=== PATIENT | female | born 1950 | race Caucasian/White ===

== ENCOUNTER 2017-07-18 18:54 | Inpatient (IN) ==
[2017-07-18] MEDS ORDERED: IPRATROPIUM/ALBUTEROL SULFATE 3 ML NEB NEB ONE ×2 (19:01→19:05)
[2017-07-18] MEDS ORDERED: Sodium Chloride 0.9% 1,000 ML PRIMARY IV ONE (19:01)
[2017-07-18] MEDS ORDERED: NORMAL SALINE 10 ML SYRINGE FLUSH IVP PRN ×2 (19:01→22:47)
[2017-07-18] MEDS ORDERED: LORazepam 2 MG/1 ML VIAL IVP ONE (19:03)
[2017-07-18 19:10] LABS: BASOPHILS # (AUTO) 0.06 10*3/UL; BASOPHILS % (AUTO) 0.6 % (0-1); EOSINOPHILS # (AUTO) 0.28 10*3/UL; EOSINOPHILS % (AUTO) 2.8 % (0-8); Hematocrit [HCT] 47.5 % (37.0-47.0); Hemoglobin [HGB] 15.4 g/dL (12.0-16.0); MEAN CORPUSCULAR HEMOGLOBIN 30.9 PG (27-31); MEAN CORPUSCULAR HGB CONC 32.4 g/dL (33-37); MEAN CORPUSCULAR VOLUME 95.2 FL (81-99); MONOCYTES # (AUTO) 0.63 10*3/UL (0.3-0.8); MONOCYTES % (AUTO) 6.3 % (5-15); NEUTROPHILS # (AUTO) 5.79 10*3/UL; NEUTROPHILS % (AUTO) 57.4 % (50-80); RED BLOOD COUNT 4.99 10^6/uL (4.20-5.40)
[2017-07-18 19:11] LABS: PLATELET MORPHOLOGY COMMENT NORMAL MORPHOLOGY (NORM); RBC MORPHOLOGY COMMENT NORMAL MORPHOLOGY (NORM); WBC MORPHOLOGY COMMENT NORMAL MORPHOLOGY (NORM)
[2017-07-18 19:23] LABS: BLOOD UREA NITROGEN 12 mg/dL (7-22); SERUM ALBUMIN 4.5 g/dL (3.5-4.8)
--- NOTE | 2017-07-18 19:31 | DI ---
EXAM: XR Chest, 1 View CLINICAL HISTORY: ITS.REASON Dyspnea Physician Notes: Tech Comments: TECHNIQUE: Frontal view of the chest. COMPARISON: No relevant prior studies available. FINDINGS: Lungs: No confluent consolidation or edema. Platelike atelectasis or scarring in the right lower lung field. Pleural space: Mild blunting of the left costophrenic angle. No pneumothorax. Heart: Unremarkable. No cardiomegaly. Mediastinum: Unremarkable. Bones/joints: No acute fracture. IMPRESSION: 1. Mild blunting of the left costophrenic angle. 2. No confluent consolidation or edema.
[2017-07-18] MEDS ORDERED: metroNIDAZOLE 500mg (Premix) 500 MG/100 ML BAG IV ONE (21:56)
[2017-07-18] MEDS ORDERED: cefTRIAXone Inj 2 GM in Sodium Chloride 0.9% 100 ML IV ONE (21:56)
--- NOTE | 2017-07-18 22:14 | PDOC ---
Dyspnea HPI - General Chief Complaint: Respiratory Complaint Stated Complaint: "CAN'T Breath" Date Seen by Provider: 07/18/17 Time Seen by Provider: 19:10 Source: POSITIVE: Patient, Spouse Exam Limitations: POSITIVE: No limitations Treatment Prior to Arrival: REPORTS: None Nurse's Notes Reviewed & Considered: Yes - History of Present Illness Initial Comments: The patient is a 67-year-old female with a diagnosis of ALS who presents to the emergency department with difficulty breathing. She was diagnosed with ALS 3 years ago. She has had progressive weakness that started in her arms and has progressed to her legs over the past several months. For the past week or so she has had some increased difficulty swallowing. This evening she developed some phlegm in the back of her throat which she could not clear and she subsequently developed a difficult time breathing. When she arrived in the emergency department she was feeling very short of breath. She denies any recent fevers or chills, chest pain or any other associated symptoms. She does not normally wear oxygen at home. - Patient Home Medications Home Medications: Home Medications alfalfa 250 mg tablet 500 mg PO QHS ea 06/13/17 cholecalciferol (vitamin D3) 1,000 unit capsule 1,000 unit PO QDAY cap cyanocobalamin (vit B-12) 2,500 mcg sublingual tablet 2,500 mcg PO QDAY gabapentin 300 mg capsule 300 mg PO QDAY cap 06/13/17 - Patient Allergies Allergies/Adverse Reactions: Allergies 3 Allergy/AdvReac Type Severity Reaction Status Date / Time No Known Drug Allergies Allergy NOT Verified 07/18/17 22:00 APPLICABLE Past Medical History Past Medical History Reviewed: Other (please comment) (Past medical history is significant for ALS and otherwise no medical issues.) ROS - Limitations ROS Limitations: No Limitations Constitution: DENIES: Chills, Fever Cardiovascular: DENIES: Chest Pain Respiratory: REPORTS: Shortness Of Breath. DENIES: Cough Non Productive, Cough Productive Neurological: REPORTS: Weakness (Significant weakness in her extremities). DENIES: Headache Musculoskeletal: REPORTS: Denies MS Symptoms, Other (Some mild swelling in her legs) Eyes: REPORTS: Denies Symptoms ENT: REPORTS: Trouble Swallowing. DENIES: Congestion Skin: DENIES: Rash Dyspnea Physical Exam - General Appearance General Appearance: REPORTS: Anxious - HEENT HEENT: POSITIVE: Head Inspection Nml, Eyes Inspection Nml, Ears Inspection Nml, Pharynx Inspect. Nml - Respiratory Respiratory: REPORTS: Other (On arrival the patient was tachypnea, she had marked upper respiratory rhonchi especially in the right upper lung with some gurgling noted with respirations, she was very anxious on arrival, O2 sats were in the low to mid 90s on room air) - Cardiovascular Cardiovascular: REPORTS: Heart Sounds Normal, Other (She was tachycardic with a heart rate in the 130s initially) - Abdomen Abdomen: Soft: (All Quadrants), Denies Tenderness: (All Quadrants), No Distention: (All Quadrants) - Skin Skin: REPORTS: Intact, No Rash - Extremities Extremity: Normal ROM: (All Extremities), Normal Inspection: (All Extremities) - Neurological / Psychological Neurological: POSITIVE: Oriented X3, Motor Normal, Sensation Normal Dyspnea Progress - Results Reviewed by me Xrays/CTs/US Reviewed by me: Yes Discussed with Radiologist: Yes Radiology Findings: Portable chest x-ray shows linear atelectasis in the right lower lung with some blunting of the costophrenic angle on the left with no obvious infiltrate per radiologist. Lab Results Reviewed by Me: Yes CBC and BMP: 07/18/17 19:00 07/18/17 19:00 - Patient's Progress MDM / ED Course: The patient appeared to be having a difficult time clearing upper airway secretions on arrival. She was tachypnea take in very anxious. Oxygen saturations were in the low to mid 90s on room air. The patient was suctioned both deep suction as well as Yankauer suction and given a duo neb. She still had subjective difficulty breathing. She was subsequently placed on BiPAP which improved her breathing significantly. Initial venous blood gas showed a normal pH and normal PCO2. Chest x-ray shows some linear atelectasis in the right lung base and some blunting of the left costophrenic angle otherwise no acute abnormalities per radiologist. Her blood work is all essentially unremarkable with a normal white count and normal d-dimer. Blood cultures were drawn with initial IV start. After the patient had been on BiPAP for almost 2 hours she was weaned back to a nasal cannula which she tolerated very well. She was breathing subjectively much better than on arrival. We did try to wean her completely off of oxygen however her sats dropped into the upper 80s and she was placed back on 2 L per nasal cannula. I did discuss these findings with the patient and her family as well as with Dr. Prieto. Current plan is for admission. She will be started on antibiotics for treatment of possible early pneumonia/aspiration. She was given 2 g of Rocephin and 500 mg of Flagyl. These recommendations were discussed with the patient and her family and they' re in agreement with current plan. - Consult Counseled: POSITIVE: Patient, Family, RE: Lab Results, RE: Radiology Results, RE : DX Patient Care Time - Estimated PCT Patient Care Time (In Minutes): 45 Vital Signs - Recent Vital Signs Vital Signs: Vital Signs (Last 8 hours) Pulse Resp Pulse Ox 07/18/17 19:11 126 H 28 H 96 07/18/17 19:10 136 H 28 H 97 - VS Reviewed Vital Signs Reviewed: Yes Discharge Clinical Impression: ALS (amyotrophic lateral sclerosis), Aspiration into airway Discharge Disposition: Admit to Inpatient Condition: Fair Follow Up With: JEFF JETT [Primary Care Provider] - Date Decision to Admit to Inpatient: 07/18/17 Time Decision to Admit to Inpatient: 22:00
[2017-07-18 22:15] LABS: VENOUS PH 7.39 (7.32-7.42)
[2017-07-18] MEDS ORDERED: LIDOCAINE W/ SODIUM BICARB 0.5 ML SYR SUBD PRN (22:47)
[2017-07-18] MEDS ORDERED: ALBUTEROL SULFATE 2.5 MG/3 ML NEB PRN (22:47)
[2017-07-18] MEDS ORDERED: ONDANSETRON 4 MG/2 ML VIAL IVP PRN (22:47)
--- NOTE | 2017-07-18 23:18 | PDOC ---
HPI - History of Present Illness Date of Service: 07/18/17 Time of Service: 23:13 Chief Complaint: Short of breath History of Present Illness: This is a very pleasant 67-year-old female with a rare form of ALS, who presents here with sudden onset shortness of breath, coughing, and apparent mucous plugging. She states that initially thing started out with a sensation in the back of her throat like she was not able to clear something or there could be some phlegm. She tried to clear it with cough and could not. She is coming in by her , and her and her state that she has had more issues lately with some food items feeling like they're getting stuck at the back of the throat such as bread and a gradual decline in overall function over the last several months. The patient generally can clear phlegm, but she couldn 't this time, she tried some ice chips and that did not work. She finally had her bring her in for evaluation and in the emergency room, she eventually had to have BiPAP, suctioning, and an albuterol treatment is what the patient states helped her the most. She now feels much better. She is not had any fevers, chills, nausea, vomiting, and doesn't really complain of any heartburn issues. She's not had anything like this happen before. She was diagnosed with ALS about 3 years ago. She is seen the [facility], seasonal predominance only, and sees locally, Dr. Tiwari. Her chest x-ray has some discoid type atelectasis and possible blunting in the costophrenic angle on the left side which could be infiltrate or atelectasis. Past Medical History Medical History: 1. ALS Surgical History: 1. Tubal ligation due to a tubal Pertinent Family History: No family history of ALS. Past Social History: for 50 years. Has 2 healthy children, several grandchildren that are healthy and live in the area of [place], [place]. Lives at home with her . Does not smoke or drink. Tobacco Use: Never Smoker In the Past 12 Months, Have Used or Abuse Any of the Following Substance: None Alcohol Use: None Medication / Allergies Home Medications: Home Medications 3 Medication Instructions Recorded Confirmed Type alfalfa 250 mg tablet 500 mg PO QHS ea 06/13/17 06/13/17 History cholecalciferol (vitamin D3) 1,000 1,000 unit PO QDAY cap 06/13/17 06/13/17 History unit capsule cyanocobalamin (vit B-12) 2,500 2,500 mcg PO QDAY 06/13/17 06/13/17 History mcg sublingual tablet gabapentin 300 mg capsule 300 mg PO QDAY cap 06/13/17 06/13/17 History Allergies/Adverse Reactions: Allergies 3 Allergy/AdvReac Type Severity Reaction Status Date / Time No Known Drug Allergies Allergy NOT Verified 07/18/17 22:00 APPLICABLE Review of Systems - Review of Systems All Systems: Reviewed & No Additional Complaints Except as Stated (I did a 12 point review of systems and it was negative except for that in history present illness and that noted below.) - Constitutional Constitutional: REPORTS: Fever / Chills (Gets frequent hot and cold chills.), Other (Weight has remained fairly consistent.) - Mouth/Throat Mouth/Throat Exam: REPORTS: Sore Throat (Has a sore throat after suctioning today.) - Respiratory Respiratory: REPORTS: Negative System Review (For chronic issues), See HPI - Cardiovascular Cardiovascular: REPORTS: Negative System Review - Gastrointestinal Gastrointestinal / Abdominal: REPORTS: Negative System Review - Genitourinary Genitourinary: REPORTS: Negative System Review - Musculoskeletal Musculoskeletal: REPORTS: Other (Occasionally has some muscle aches, particularly when the weather gets bad. Has some ankle edema) - Neurological Neurologic: REPORTS: Weakness, Incoordination, Other (Nonambulatory. Does transfer chair with her for showers and bathroom. They just bought a Derick lift but have not used it.), See HPI - Psychiatric Psychiatric: REPORTS: Negative System Review Exam - Vitals Vital Signs: Vital Signs - Last Taken Temperature 97.2 F 07/18/17 19:00 Pulse Rate 126 H 07/18/17 19:11 Respiratory Rate 18 07/18/17 22:00 Blood Pressure 111/82 07/18/17 22:00 Pulse Ox 98 07/18/17 22:00 On 2 L per nasal cannula - General General Appearance: No Acute Distress, Cooperative - Head Head Exam: Normal Inspection, Normocephalic, Atraumatic - Eye Eye Exam: POSITIVE: No Scleral Icterus - ENT ENT Exam: POSITIVE: Mucous Membranes Dry - Neck Neck Exam: Normal Inspection, No Tenderness, No Lymphadenopathy, No Thyromegaly , JVP is not Raised - Respiratory Respiratory Exam: POSITIVE: Clear to Auscultation - Bilaterally, Breathing Non Labored - Cardiovascular Cardiovascular Exam: POSITIVE: No Murmur, No Clicks, No Gallops, No Rubs, Tachycardia, No JVD - GI/Abdominal GI/Abdominal Exam: POSITIVE: Normal Bowel Sounds, Non Tender, Non Distended, Soft - Rectal Rectal Exam: POSITIVE: Deferred - External Exam: POSITIVE: Deferred Exam: POSITIVE: Deferred - Extremities Extremities Exam: POSITIVE: No Clubbing Present, No Cyanosis Present - Neurological Neurological Exam: POSITIVE: Alert, Oriented x 3, No Facial Droop, Speech Intact / Clear - Psychiatric Psychiatric Exam: POSITIVE: Normal Affect, Normal Mood Results - Labs CBC and BMP: 07/18/17 19:00 07/18/17 19:00 Additional Lab Results: Laboratory Results 07/18/17 07/18/17 07/18/17 Range/Units 19:00 19:00 19:00 WBC 10.08 (4.8-10.8) 10^3/uL RBC 4.99 (4.20-5.40) 10^6/uL Hgb 15.4 (12.0-16.0) g/dL Hct 47.5 H (37.0-47.0) % MCV 95.2 (81-99) FL MCH 30.9 (27-31) PG MCHC 32.4 L (33-37) g/dL RDW Std Deviation 49.4 (39-50) fL RDW Coeff of Rhonda 14.5 (11.5-14.5) % Plt Count 284 (140-350) 10*3/uL MPV 11.0 (7.4-12.2) FL Immature Gran % (Auto) 0.2 (0-5) % Neut % (Auto) 57.4 (50-80) % Lymph % (Auto) 32.7 (10-50) % [place] % (Auto) 6.3 (5-15) % Eos % (Auto) 2.8 (0-8) % Baso % (Auto) 0.6 (0-1) % Immature Gran # (Auto) 0.02 10*3/UL Neut # (Auto) 5.79 10*3/UL Lymph # (Auto) 3.30 10*3/uL [place] # (Auto) 0.63 (0.3-0.8) 10*3/UL Eos # (Auto) 0.28 10*3/UL Baso # (Auto) 0.06 10*3/UL WBC Morphology Comment Normal morphology (NORM) Plt Morphology Comment Normal morphology (NORM) RBC Morph Comment Normal morphology (NORM) D-Dimer 0.34 (0.00-0.59) mg/L VBG pH (7.32-7.42) VBG pCO2 (45-55) mmHg VBG HCO3 (22-26) mmol/L VBG Base Excess (-2-2) MMOL/L Sodium 147 H (135-145) meq/L Potassium 3.5 L (3.8-5.2) meq/L Chloride 104 (98-112) meq/L Carbon Dioxide 26 (23-33) meq/L Anion Gap 17 (5-20) BUN 12 (7-22) mg/dL Creatinine 0.4 L (0.50-1.20) mg/dL Estimated GFR > 60 (>60 ml/min/1.73m(2)) BUN/Creatinine Ratio 30.00 H (6-20) Glucose 142 H (78-110) mg/dL Calculated Osmolality 305.0 H (267-292) mOsm/kg Lactic Acid (0.70-2.10) MMOL/L Calcium 9.3 (8.7-10.7) mg/dL Magnesium 2.1 (1.6-2.4) mg/dL Total Bilirubin 0.3 (0.3-1.2) mg/dL AST 43 H (8-39) IU/L ALT 32 (9-52) IU/L Alkaline Phosphatase 85 (38-126) IU/L C-Reactive Protein < 0.5 (0.0-0.9) mg/dL Total Protein 7.7 (6.1-8.0) g/dL Albumin 4.5 (3.5-4.8) g/dL Globulin 3.1 (2.50-4.10) g/dL Albumin/Globulin Ratio 1.40 (1.3-2.0) mg/g 07/18/17 07/18/17 Range/Units 19:00 19:15 WBC (4.8-10.8) 10^3/uL RBC (4.20-5.40) 10^6/uL Hgb (12.0-16.0) g/dL Hct (37.0-47.0) % MCV (81-99) FL MCH (27-31) PG MCHC (33-37) g/dL RDW Std Deviation (39-50) fL RDW Coeff of Rhonda (11.5-14.5) % Plt Count (140-350) 10*3/uL MPV (7.4-12.2) FL Immature Gran % (Auto) (0-5) % Neut % (Auto) (50-80) % Lymph % (Auto) (10-50) % [place] % (Auto) (5-15) % Eos % (Auto) (0-8) % Baso % (Auto) (0-1) % Immature Gran # (Auto) 10*3/UL Neut # (Auto) 10*3/UL Lymph # (Auto) 10*3/uL [place] # (Auto) (0.3-0.8) 10*3/UL Eos # (Auto) 10*3/UL Baso # (Auto) 10*3/UL WBC Morphology Comment (NORM) Plt Morphology Comment (NORM) RBC Morph Comment (NORM) D-Dimer (0.00-0.59) mg/L VBG pH 7.39 (7.32-7.42) VBG pCO2 42 L (45-55) mmHg VBG HCO3 25 (22-26) mmol/L VBG Base Excess 0 (-2-2) MMOL/L Sodium (135-145) meq/L Potassium (3.8-5.2) meq/L Chloride (98-112) meq/L Carbon Dioxide (23-33) meq/L Anion Gap (5-20) BUN (7-22) mg/dL Creatinine (0.50-1.20) mg/dL Estimated GFR (>60 ml/min/1.73m(2)) BUN/Creatinine Ratio (6-20) Glucose (78-110) mg/dL Calculated Osmolality (267-292) mOsm/kg Lactic Acid 2.0 (0.70-2.10) MMOL/L Calcium (8.7-10.7) mg/dL Magnesium (1.6-2.4) mg/dL Total Bilirubin (0.3-1.2) mg/dL AST (8-39) IU/L ALT (9-52) IU/L Alkaline Phosphatase (38-126) IU/L C-Reactive Protein (0.0-0.9) mg/dL Total Protein (6.1-8.0) g/dL Albumin (3.5-4.8) g/dL Globulin (2.50-4.10) g/dL Albumin/Globulin Ratio (1.3-2.0) mg/g - Imaging Status: Image Reviewed by Me (Chest x-ray, on my view, has what looks like atelectasis and a blunting of the costophrenic angle on the left which could be possible infiltrate. Could've aspirated here tonight.) Assessment and Plan - Patient Problems (1) Aspiration pneumonitis Current Visit: Yes Status: Acute Code(s): J69.0 - Pneumonitis due to inhalation of food and vomit (2) Dysphagia Current Visit: Yes Status: Acute Code(s): R13.10 - Dysphagia, unspecified Qualifiers: Dysphagia type: oropharyngeal phase Qualified Code(s): R13.12 - Dysphagia, oropharyngeal phase (3) Aspiration into airway Current Visit: Yes Status: Acute Code(s): T17.908A - Unspecified foreign body in respiratory tract, part unspecified causing other injury, initial encounter Qualifiers: Encounter type: initial encounter Qualified Code(s): T17.908A - Unspecified foreign body in respiratory tract, part unspecified causing other injury, initial encounter (4) ALS (amyotrophic lateral sclerosis) Current Visit: Yes Status: Chronic Code(s): G12.21 - Amyotrophic lateral sclerosis - Assessment / Plan Additional Assessment/Plan Details: Admit the patient. Start Rocephin and Flagyl and treat with IV antibiotics for 48-72 hours and then possibly finish course of therapy with by mouth medications. Given the dysphagia and ALS, I think it would be a good idea to consider doing an EGD to look for soft due to stricture and also do a modified barium swallow evaluation with speech on Friday and radiology to determine whether or not there is significant aspiration that we need to make modifications fot. Check labs in a.m. I did discuss in length with the patient and her CODE STATUS and she is DO NOT RESUSCITATE. I also discussed the idea of a potential PEG tube. The patient and her give me a history that suggests that her functionality overall is declining in terms of her ability to move, her ability to assist in transfers, her ability to swallow overall has been compromised more lately, and she may benefit from a PEG tube not only for nutritional content but also for medication delivery. Her reports to me that she is having trouble swallowing some of her pills and that is been fairly new lately. It may be beneficial to consider a swing bed for continued therapy needs to address learning how to use a Derick lift. I'll have case management/social work job titles work on looking at a home health aide that may be able to come in once a week for bath assistance to help ease some of the burden on the patient and her who is caring for her. Plan above discussed with the patient in detail. The patient's was at bedside for this discussion as well. They both agree with the plan.
[2017-07-18] MEDS: D5-1/2NS + 20mEq KCL 1,000 ML PRIMARY IV SCH (23:53)
[2017-07-19] MEDS: cefTRIAXone Inj 2 GM in Sodium Chloride 0.9% 100 ML IV SCH ×2 (00:52→22:53)
[2017-07-19 05:09] LABS: BASOPHILS # (AUTO) 0.03 10*3/UL; BASOPHILS % (AUTO) 0.3 % (0-1); EOSINOPHILS # (AUTO) 0.07 10*3/UL; EOSINOPHILS % (AUTO) 0.7 % (0-8); Hematocrit [HCT] 43.2 % (37.0-47.0); Hemoglobin [HGB] 13.4 g/dL (12.0-16.0); LYMPHOCYTES # (AUTO) 1.79 10*3/uL; MEAN CORPUSCULAR HEMOGLOBIN 29.8 PG (27-31); MEAN PLATELET VOLUME 11.6 FL (7.4-12.2); MONOCYTES # (AUTO) 0.62 10*3/UL (0.3-0.8); MONOCYTES % (AUTO) 6.1 % (5-15); NEUTROPHILS # (AUTO) 7.72 10*3/UL; NEUTROPHILS % (AUTO) 75.4 % (50-80)
[2017-07-19 05:19] LABS: BLOOD UREA NITROGEN 11 mg/dL (7-22); BUN/CREATININE RATIO 36.66 (6-20)
[2017-07-19 05:22] LABS: PLATELET MORPHOLOGY COMMENT NORMAL MORPHOLOGY (NORM); RBC MORPHOLOGY COMMENT NORMAL MORPHOLOGY (NORM); WBC MORPHOLOGY COMMENT NORMAL MORPHOLOGY (NORM)
[2017-07-19] MEDS ORDERED: metroNIDAZOLE 500mg (Premix) 500 MG/100 ML BAG IV SCH (06:00)
[2017-07-19] MEDS: Pantoprazole Inj 40 MG in Normal Saline Flush 10 ML IVP SCH (08:27)
[2017-07-19] MEDS: ENOXAPARIN SODIUM 40 MG/0.4 ML SYRINGE SUBCUT SCH (08:27)
[2017-07-19] MEDS: GABAPENTIN 300 MG CAPSULE PO SCH (08:28)
[2017-07-19] MEDS: CHOLECALCIFEROL 1000 IU TABLET PO SCH ×2 (08:28→08:56)
[2017-07-19] MEDS: ASCORBIC ACID 500 MG TABLET PO SCH ×2 (08:28→08:56)
[2017-07-19] MEDS: metroNIDAZOLE 500mg (Premix) 500 MG/100 ML BAG IV SCH ×3 (08:30→23:53)
[2017-07-19] MEDS: D5-1/2NS + 20mEq KCL 1,000 ML PRIMARY IV SCH (08:31)
[2017-07-19] MEDS ORDERED: CYANOCOBALAMIN 2500 MCG PO SCH (09:00)
[2017-07-19] MEDS ORDERED: GUAIFENESIN/DM 5 ML UD CUP PO PRN (16:10)
[2017-07-19] MEDS ORDERED: Potassium Chloride 20mEq Packet PO ONE (16:15)
--- NOTE | 2017-07-19 16:16 | PDOC(PROG) ---
Date and Time of Service: 07/19/2017, 1610 Interval History: no chest pain, SOB is better, but does report congestion. still gets sore throat; not as bad as yesterday. Objective : Data - Labs CBC and BMP: 07/19/17 04:20 07/19/17 04:20 Objective : Exam - General General Appearance: No Acute Distress, Cooperative Additional General Exam Details: Vital Signs - Last Taken Temperature 98.2 F 07/19/17 13:00 Pulse Rate 94 07/19/17 13:00 Respiratory Rate 20 07/19/17 13:00 Blood Pressure 165/90 07/19/17 13:00 Pulse Ox 97 07/19/17 14:45 - Eye Eye Exam: No Scleral Icterus - ENT ENT Exam: Mucous Membranes Moist - Respiratory Respiratory Exam: Clear to Auscultation - Bilaterally, Breathing Non Labored - Cardiovascular Cardiovascular Exam: RRR, No Murmur, No Clicks, No Gallops, No Rubs, No JVD - GI/Abdominal GI/Abdominal Exam: Normal Bowel Sounds, Non Tender, Non Distended, Soft - Extremities Extremities Exam: No Clubbing Present, No Edema Present, No Cyanosis Present - Neurological Neurological Exam: Alert, Oriented x 3, No Facial Droop, Speech Intact / Clear Assessment and Plan - Patient Problems (1) Aspiration pneumonitis Current Visit: Yes Status: Acute Code(s): J69.0 - Pneumonitis due to inhalation of food and vomit (2) Dysphagia Current Visit: Yes Status: Acute Code(s): R13.10 - Dysphagia, unspecified Qualifiers: Dysphagia type: oropharyngeal phase Qualified Code(s): R13.12 - Dysphagia, oropharyngeal phase (3) Aspiration into airway Current Visit: Yes Status: Acute Code(s): T17.908A - Unspecified foreign body in respiratory tract, part unspecified causing other injury, initial encounter Qualifiers: Encounter type: initial encounter Qualified Code(s): T17.908A - Unspecified foreign body in respiratory tract, part unspecified causing other injury, initial encounter (4) ALS (amyotrophic lateral sclerosis) Current Visit: Yes Status: Chronic Code(s): G12.21 - Amyotrophic lateral sclerosis - Assessment / Plan Additional Assessment/Plan Details: replace potassium consulted surgery for possible EGD if stricture is thought after swallow eval, also getting pill dysphagia, likely may need consideration for PEG tube IV antibiotics for today, check CXR tomorrow check labs in AM plan discussed with the patient and at bedside. PT and OT--train and patient on payton lift check with case management on details of possible home health aide to help with shower--get costs for patient to help her make decision on that.
[2017-07-19] MEDS ORDERED: LABETALOL 20 MG/4 ML (5 MG/1 ML) SYRINGE IVP PRN (19:38)
[2017-07-19] MEDS ORDERED: ALFALFA 250 MG PO SCH (21:00)
[2017-07-20 06:43] LABS: BASOPHILS # (AUTO) 0.05 10*3/UL; BASOPHILS % (AUTO) 0.6 % (0-1); EOSINOPHILS # (AUTO) 0.15 10*3/UL; EOSINOPHILS % (AUTO) 1.9 % (0-8); Hematocrit [HCT] 42.2 % (37.0-47.0); Hemoglobin [HGB] 13.1 g/dL (12.0-16.0); LYMPHOCYTES # (AUTO) 1.14 10*3/uL; MEAN CORPUSCULAR VOLUME 96.6 FL (81-99); MEAN PLATELET VOLUME 11.2 FL (7.4-12.2); MONOCYTES # (AUTO) 0.58 10*3/UL (0.3-0.8); MONOCYTES % (AUTO) 7.2 % (5-15); NEUTROPHILS # (AUTO) 6.16 10*3/UL; RED BLOOD COUNT 4.37 10^6/uL (4.20-5.40)
[2017-07-20 06:50] LABS: PLATELET MORPHOLOGY COMMENT NORMAL MORPHOLOGY (NORM); RBC MORPHOLOGY COMMENT NORMAL MORPHOLOGY (NORM); WBC MORPHOLOGY COMMENT NORMAL MORPHOLOGY (NORM)
[2017-07-20 07:01] LABS: BLOOD UREA NITROGEN 6 mg/dL (7-22)
--- NOTE | 2017-07-20 07:51 | DI ---
PORTABLE AP SEMIUPRIGHT CXR: HISTORY: 67-year-old female with aspiration pneumonitis. COMPARISON: 07/18/2017. FINDINGS: There is new ill-defined patchy groundglass opacity within the infrahilar right lower lung; previously identified thin linear right perihilar density is not identified currently. There is new or increased patchy groundglass opacity within the left lateral upper/midlung as well. There is persistent minimal blunting of the left lateral costophrenic sulcus. Heart size is normal and stable. No obvious pneumothorax. IMPRESSION: New or increased patchy ground glass opacities within the right lower and left upper lungs, suggesting possible early atypical/multifocal pneumonia, including aspiration pneumonia; minimal blunting of the left lateral costophrenic sulcus, suggesting possible small effusion, as before.
[2017-07-20] MEDS: D5-1/2NS + 20mEq KCL 1,000 ML PRIMARY IV SCH (08:09)
[2017-07-20] MEDS ORDERED: Sodium Chloride 0.9% 50 ML ONE (08:32)
[2017-07-20] MEDS: GABAPENTIN 300 MG CAPSULE PO SCH (08:49)
[2017-07-20] MEDS: Pantoprazole Inj 40 MG in Normal Saline Flush 10 ML IVP SCH (08:49)
[2017-07-20] MEDS: ENOXAPARIN SODIUM 40 MG/0.4 ML SYRINGE SUBCUT SCH (08:49)
[2017-07-20] MEDS: metroNIDAZOLE 500mg (Premix) 500 MG/100 ML BAG IV SCH ×3 (08:58→23:17)
[2017-07-20] MEDS: ASCORBIC ACID 500 MG TABLET PO SCH (10:16)
[2017-07-20] MEDS: CHOLECALCIFEROL 1000 IU TABLET PO SCH (10:17)
[2017-07-20] MEDS ORDERED: CYANOCOBALAMIN 1000 MCG/1 ML VIAL IM ONE (13:34)
--- NOTE | 2017-07-20 13:37 | PDOC(PROG) ---
Interval History: Doing better today had something to eat or complaints Objective : Data - Labs CBC and BMP: 07/20/17 06:05 07/20/17 06:05 Objective : Exam - General General Appearance: Cooperative - Respiratory Respiratory Exam: Clear to Auscultation - Bilaterally, Breathing Non Labored, Normal To Percussion, Normal to Percussion and Palpation - Cardiovascular Cardiovascular Exam: RRR, No Murmur, No Clicks, No Gallops, No Rubs, PMI Non- Displaced - GI/Abdominal GI/Abdominal Exam: Normal Bowel Sounds, Non Tender, Non Distended, Soft, No Masses, No Hepatomegaly, No Splenomegaly, No Organomegaly Assessment and Plan - Patient Problems (1) ALS (amyotrophic lateral sclerosis) Current Visit: Yes Status: Chronic Code(s): G12.21 - Amyotrophic lateral sclerosis (2) Aspiration into airway Current Visit: Yes Status: Acute Code(s): T17.908A - Unspecified foreign body in respiratory tract, part unspecified causing other injury, initial encounter Qualifiers: Encounter type: initial encounter Qualified Code(s): T17.908A - Unspecified foreign body in respiratory tract, part unspecified causing other injury, initial encounter (3) Aspiration pneumonitis Current Visit: Yes Status: Acute Code(s): J69.0 - Pneumonitis due to inhalation of food and vomit (4) Dysphagia Current Visit: Yes Status: Acute Code(s): R13.10 - Dysphagia, unspecified Qualifiers: Dysphagia type: oropharyngeal phase Qualified Code(s): R13.12 - Dysphagia, oropharyngeal phase - Assessment / Plan Additional Assessment/Plan Details: #1 hypokalemiacontinue replacement #2 aspiration pneumonia surgery was consult for possible EGD and swallow eval tomorrow she has been having difficulty even having and taking pills and that after the results. There will be consideration for possible PEG tube continue antibiotics for aspiration pneumonia plan was discussed with and patient and kids in the room most likely this could be a neurologic issue from her ALS that she's had for the last 4 years We'll check B12 and folate levels give 1000 g of B12
[2017-07-20] MEDS: cefTRIAXone Inj 2 GM in Sodium Chloride 0.9% 100 ML IV SCH (22:20)
[2017-07-21 02:05] VITALS: RESP 18
[2017-07-21] MEDS: metroNIDAZOLE 500mg (Premix) 500 MG/100 ML BAG IV SCH (08:05)
[2017-07-21] MEDS ORDERED: LORazepam 2 MG/1 ML VIAL IVP ONE (08:42)
[2017-07-21] MEDS ORDERED: cefTRIAXone Inj 2 GM in Sodium Chloride 0.9% 100 ML IV SCH (09:30)
[2017-07-21] MEDS: GABAPENTIN 300 MG CAPSULE PO SCH (09:39)
[2017-07-21] MEDS: ENOXAPARIN SODIUM 40 MG/0.4 ML SYRINGE SUBCUT SCH (09:40)
[2017-07-21] MEDS: Pantoprazole Inj 40 MG in Normal Saline Flush 10 ML IVP SCH (09:40)
[2017-07-21] MEDS: CHOLECALCIFEROL 1000 IU TABLET PO SCH (09:41)
[2017-07-21] MEDS: ASCORBIC ACID 500 MG TABLET PO SCH (09:41)
--- NOTE | 2017-07-21 10:38 | DCSUMMARY ---
Hospitalization Summary Hospital Course: Final Discharge Diagnosis: Current Visit Problems Problem Status Onset Code Aspiration into airway Acute T17.908A Aspiration pneumonitis Acute J69.0 Dysphagia Acute R13.10 ALS (amyotrophic lateral sclerosis) Chronic G12.21 Diagnostic Data, Laboratory Data, and Procedures of Signifigance: Laboratory Results 07/21/17 Range/Units 04:25 Vitamin B12 > 1000 H (239-931) pg/mL Serum Folate 8.36 (2.76-20.0) NG/ML History and Physical pertinent to Admission: Past Medical History Medical History: 1. ALS Surgical History: 1. Tubal ligation due to a tubal Pertinent Family History: No family history of ALS. Past Social History: for 50 years. Has 2 healthy children, several grandchildren that are healthy and live in the area of [place], [place]. Lives at home with her . Does not smoke or drink. Tobacco Use: Never Smoker In the Past 12 Months, Have Used or Abuse Any of the Following Substance: None Alcohol Use: None Course of Hospitalization: Is a very nice 67-year-old female with the past medical history of a rare form of ALS followed by Dr. Tiwari for the last 3 years so was seen at [facility] presented with the shortness of breath and coughing also are stated that the lately she had some food being stuck and some difficulty swallowing had to have some BiPAP and suctioning and albuterol treatments patient improved and is back to her baseline and diagnosed with the aspiration pneumonia. Was started on antibiotics with Rocephin and Flagyl. Swallow study with the modified barium was ordered the occupational therapist did do only the first part patient refused the second part of her barium and occupational therapist agreed with the patient that for now she might not need it she will have a mechanical soft and modified the next 2 liquid diet she will also crush her pills patient is very adamant on being discharged home occupational therapist as talk with the patient and will be going to her house this afternoon for further evaluation patient has accepted this but she will be staying home no matter what their recommendations are this was discussed with the which is the primary caregiver patient and nursing son and occupational and physical therapy in the room. Patient states that she will feel much more comfortable in her own environment at home and appreciates the care that she was given On the date of discharge, the patient was examined: Gen.: No acute distress, alert, nontoxic Heart: Regular rate and rhythm, no murmurs, clicks, gallops, or rubs Lungs: Clear to auscultation bilaterally, breathing is nonlabored Abdomen/GI: Normal tones on auscultation, soft, nontender, nondistended Musculoskeletal/extremities: No clubbing, cyanosis, or edema Vitals reviewed and are listed below Vital Signs (24 hrs) Temp Pulse Resp BP Pulse Ox 07/21/17 08:49 98.0 F 111 H 18 147/91 93 07/21/17 07:00 99 18 07/21/17 05:24 90 07/21/17 04:44 98.0 F 99 18 146/85 91 07/21/17 01:00 97.8 F 96 18 154/89 90 07/20/17 20:47 98.5 F 105 H 20 145/85 90 07/20/17 19:00 105 H 20 07/20/17 12:48 97.7 F 109 H 20 155/81 90 Assessment and Plan: 1. As per discharge assessments above 2. Disposition: Home 3. Condition on discharge, stable and improved. 4. Diet: Mechanical soft modified nectar and crushing pills 5. Activities: resume normal activities 6. Follow-Up: 1. PCP 2. Allergy Dr. Tiwari she will make her own appointment 7. Medications at the Time of Discharge: Home Medications 3 Medication Instructions Recorded Confirmed Type alfalfa 250 mg tablet 500 mg PO QHS ea 06/13/17 06/13/17 History cholecalciferol (vitamin D3) 1,000 1,000 unit PO QDAY cap 06/13/17 06/13/17 History unit capsule cyanocobalamin (vit B-12) 2,500 2,500 mcg PO QDAY 06/13/17 06/13/17 History mcg sublingual tablet gabapentin 300 mg capsule 300 mg PO QDAY cap 06/13/17 06/13/17 History Home Medications 3 Medication Instructions Recorded Confirmed Type alfalfa 250 mg tablet 500 mg PO QHS ea 06/13/17 06/13/17 History cholecalciferol (vitamin D3) 1,000 1,000 unit PO QDAY cap 06/13/17 06/13/17 History unit capsule cyanocobalamin (vit B-12) 2,500 2,500 mcg PO QDAY 06/13/17 06/13/17 History mcg sublingual tablet gabapentin 300 mg capsule 300 mg PO QDAY cap 06/13/17 06/13/17 History Moxifloxacin HCl [Avelox] 400 mg PO DAILY #4 tab 07/21/17 Rx 8. Time, care, counseling and coordination of care for this discharge is greater than 30 minutes. Exam - Vitals Vital Signs: Vital Signs Temperature 98.0 F Temperature Source Temporal Artery Scan Pulse Rate [Pulse Oximeter] 111 Pulse Rate 108 Respiratory Rate 18 Blood Pressure [Right Arm] 147/91 Pulse Ox 93 Oxygen Flow Rate 2 Oxygen Delivery Method Room Air Height 5 ft 2 in Weight 119 lb 6.4 oz Patient Problems - Patient Problem List (1) ALS (amyotrophic lateral sclerosis) Current Visit: Yes Status: Chronic Comment: diagnosed 2015 Code(s): G12.21 - Amyotrophic lateral sclerosis Category: Medical (2) Aspiration into airway Current Visit: Yes Status: Acute Code(s): T17.908A - Unspecified foreign body in respiratory tract, part unspecified causing other injury, initial encounter Qualifiers: Encounter type: initial encounter Qualified Code(s): T17.908A - Unspecified foreign body in respiratory tract, part unspecified causing other injury, initial encounter Category: Medical (3) Aspiration pneumonitis Current Visit: Yes Status: Acute Code(s): J69.0 - Pneumonitis due to inhalation of food and vomit Category: Medical (4) Dysphagia Current Visit: Yes Status: Acute Code(s): R13.10 - Dysphagia, unspecified Qualifiers: Dysphagia type: oropharyngeal phase Qualified Code(s): R13.12 - Dysphagia, oropharyngeal phase Category: Medical
--- NOTE | 2017-07-21 11:38 | PTI REPORT ---
Thank you for the referral of Janeth Garber. She was seen on 07/19/17 for an inpatient evaluation secondary to ALS and to train on Derick lift. SUBJECTIVE: The patient is a 67-year-old female who states that last night she began having some difficulties with swallowing and felt that she had something stuck in her throat. The patient was unable to manually clear her throat, so her did bring her to the emergency room where she did require treatment due to a possible mucous plug that was blocking her airway. The patient states that she is doing better this morning following all the treatments, she just complains that her throat is sore from the treatments. The patient was diagnosed approximately three years ago with a slowly developing form of ALS and over the last three years she has progressively lost her mobility and independence with all activities as she has no functional use of her bilateral shoulders and minimal use of her wrists and hands and has progressively declined with the mobility and use of any muscles within her bilateral lower extremities. The patient lives at home with her where he serves as a primary museum exhibit designer and is responsible for helping the patient perform transfers and helping the patient do all ADLs as well. The couple has purchased a Derick lift which they have not needed to use yet, but they would like to be instructed on how to properly use the device so that when the time comes and the needs that to help transfer the , he will be competent in that area. As for right now , they have just been performing stand pivot transfers and using wheelchair for mode of mobility. PAST MEDICAL HISTORY: Past medical history can be found in the patient's medical record. OBJECTIVE FINDINGS: General observations: The patient was alert and oriented to setting upon PT arrival. The patient complained of pain and soreness in her throat from treatment from the night before. Range of motion/Strength: As stated earlier, the patient does not have any functional use of her bilateral upper extremities minus minimal motion of her bilateral hands. The patient is able to kind of reposition herself slightly by kind of lifting up her low back and gluts to provide a little pressure relief, but movement is very minimal. The patient is unable to actively raise either lower extremity or even move the lower extremities at all. The patient is able to tolerate passive motion to all extremities. Bed mobility: The patient requires max assist x1 to go from supine to seated edge of bed. Once seated edge of bed, the patient does have fair core strength and she is able to sit up without support. Transfers: In order to move from a seated position to either the wheelchair or bedside commode, the patient does perform a stand pivot transfer with max assist. At times, the patient's lower extremities won't be working as well and they can sometimes get twisted, so sometimes transferring without the full stand works well for the patient. With transfers, the patient does also need her head supported, as she is having some difficulties with that just during the transfers. When she is in a seated position, she can maintain a proper head position. Mobility: The patient primarily is in a wheelchair for mobility, with dependency on somebody to push her around. ASSESSMENT: The patient has fair to poor rehab potential secondary to her diagnosis of ALS and the progression of the disease. Problem List: Continuing decline in functional mobility and strength Short-Term Goals: To be met by discharge from inpatient: Patient's , who is her primary caregiver, will be competent in ability to correctly and properly use Derick lift in order to transfer patient. Pain management for all extremities with passive motion will be provided as needed. Long-Term Goals: To be met following discharge from inpatient: Patient will continue to be seen by outpatient physical therapy one day per week in order to receive manual therapy in the form of stretching for bilateral upper and bilateral lower extremities to decrease chance of contractures. TREATMENT PLAN: Patient will be seen on a PRN basis due to patient's diagnosis and inability to perform any kind of strengthening activities due to progression of her ALS. We will be doing transfer training with the with use of the Derick lift. The patient does have orders for a swallowing study from occupational therapy. INITIAL TREATMENT: Treatment today consisted of the initial evaluation. ELMER
[2017-07-21 12:02] VITALS: BP 157/98; TEMP 97.8; O2SAT 92
--- NOTE | 2017-07-22 10:48 | OTI REPORT ---
Thank you for the referral of Janeth Garber. She was seen on 07/21/17 for an occupational therapy inpatient evaluation secondary to ALS. SUBJECTIVE: The patient is a 67-year-old female. The patient reports that she came into the emergency room Friday feeling like she couldn't breathe very well. She stated that they found a mucous plug that was stuck and had to aspirate it with a tube. Her throat is pretty sore because they used a larger tube than what felt comfortable in the throat; however, they couldn't find much. The patient does live with her . She was diagnosed with ALS approximately three years ago and has become increasingly worse with her abilities. The patient and her report that they have quite a difficult time with the showers in her home as well as getting in and out of their bathroom because their bathroom is very small. The patient reports that she receives assistance from her with all activities including feeding herself, showering, dressing, sitting, and all functional transfers. She has lost her ability in her lower extremities. At times she can perform stand pivot transfers; however, she is losing her footing with her legs. They have not used the Derick lift that they bought in January and her would like more training on that before he uses it. PAST MEDICAL HISTORY: Past medical history can be found in the patient's medical record. OBJECTIVE FINDINGS: The patient's active range of motion and strength were not tested as this is not appropriate at this point in time; however, it is highly recommended that we go and do a home evaluation as the patient and her are struggling more at home with shower transfers and transfers in and out of the bathroom. The patient does have a Derick lift that the has not used at this point in time and will need training. She is getting to the point where she will need to use the Derick lift for almost all transfers. Dr. Prieto had ordered a modified barium swallow study on Friday. The radiologist was not going to be in until at least 1:00 today and could not get scheduled until Friday. We decided to go through with a bedside swallow evaluation. The patient was sitting in her recliner when the therapist arrived. She states that she typically does not have difficulty swallowing but does have a tickle in her throat at times. Pre-Swallow Assessment Alertness and Responsiveness: The patient was alert and responsive. Reliable responses: The patient had reliable yes and no responses. Facial symmetry: The patient demonstrated facial symmetry. Volitional dry swallow: The patient demonstrated a weak but volitional dry swallow. Cough: The patient's cough was weak. Nutrition and intake method: The patient's nutrition and intake method has been a regular diet with thin liquids. Respiratory status: The patient's respiratory status has been good and she has not needed oxygen. Dentition: The patient does have her own dentition. Voice quality: Voice quality is soft but within normal limits. Head control: Head control is good as long as she is sitting, but sometimes she has difficulty if she is going into an extended position and she demonstrates weakness. Sensation: Sensation on the buccal, labial, and lingual area is within normal limits. General observations: The patient can wiggle her toes and her fingers. She has poor balance. Feeding Assessment: During the feeding assessment the patient had an intact automatic swallow. Laryngeal elevation was slightly impaired. She has about a two finger elevation width with her swallow. Today we started out with thin liquid which included her coffee which the patient drinks quite frequently. The patient was able to swallow with 75% laryngeal elevation; however, she had just a little tickle in her throat followed by a very soft cough. Typically we may think of this as some throat clearing; however, due to her x-rays and findings of aspiration pneumonia on the lungs, we are going to assume that she is aspirating thin liquid at this point in time. The patient was then given nectar thickened liquid. She didn't mind the taste. She did much better and was sitting in an upright position. We tried this in a neutral position as well with a chin tuck and she said the chin tuck helped her clear better, but the nectar thickened liquid seemed to go down well also. After the nectar thickened liquid she did not demonstrate the tickle or the cough that she did initially. She then was assessed with eggs and yogurt. She was able to demonstrate good control of both of those. Based on her subjective of eating fried fish and [place] fries on Friday and then getting that tickle in her throat, it is assumed that regular food items with her laryngeal elevation will not be safe at this point in time. The patient was having difficulty swallowing medications whole. It is recommended that she have medications crushed and placed in a puree. Rate of swallow is slow. Swallow is efficient for adequate PO intake at this point in time. ASSESSMENT/RECOMMENDATIONS: The patient does have ALS and at any point in time her condition may worsen; however, at this point in time we are going to recommend the followin. The patient should be placed on a mechanical soft diet. 2. The patient should have nectar thickened liquids. 3. Positioning is very important and the patient will need to be at a 90 degree position for all modified food and liquid intake. 4. Chin tucks are highly recommended for each swallow as this does tend to close the epiglottis gap more. 5. Medications should be crushed and served in a puree. 6. Even though the video fluoroscopy was recommended, the patient does not want to go through with the modified barium swallow study. She may have difficulty keeping her balance in the study and positioning may be difficult for her in the study. At this point in time the patient seems to be fine with the above recommendations. Dr. Marte was informed of the recommendations and he agreed. The patient and the patient's were highly educated on the nectar thickener, not only in her liquids, but also with foods such as soups and other items that have a thin liquid such a mechanical soft fruit cups. They were also give two different packets on foods that were safe for a mechanical soft diet and also foods to avoid that are not safe on this type of diet. The patient was given two cans of thickener along with 10 gel packets. She is going to try both at home to see which one she likes the best. Her was given a list of prices to order from the cafeteria if that is where he chooses to purchase them. INITIAL TREATMENT: Treatment today consisted of the initial evaluation activities only. ELMER
--- NOTE | 2017-07-22 10:54 | OT PM DAY ---
Diagnosis : ALS PM - Occupational Therapy (Home Evaluation) S: The patient's 's main concern is the bathroom area. O: PT and OT did co-treat the home evaluation; however, we are only charging 1/2 an hour each for our time there, even though we were both there an hour. OT's main goal was to adapt the bathroom. The bathroom is very tiny. There is a tiny sink in there, a toilet, and a walk-in shower with glass sliding doors. At this point in time, it is recommended that the family remove the glass sliding doors, put a shower curtain up, and have the glass sliding doors not in the bathroom. The was shown a toilet/sliding tub chair that can be placed over their toilet seat and that goes into the shower itself, that way there will be less transfers involved. It also contains a seatbelt and a back which the patient would be safer in. At this point in time they only have a round stool that is in the walk in shower. This is not safe as the patient does not have the trunk balance in order to keep upright during her showers. They do have a smaller wheeled walker that they will have to transfer through the doorway as the bathroom is too small to get the Derick lift into. A: At this time the patient would benefit from a sliding toilet/shower chair that goes from the toilet to the shower. This has a seatbelt that will help with stability as well as a back to lean against in the shower. It is also recommended that they remove the throw rug in their kitchen and turn their kitchen table in a sideways manner to allow more room for the Derick lift. Room was already made in the bedroom to get the Derick lift in the bedroom. PT went over use of the Derick lift. P: Patient will be discharged to home. She will be receiving assistance with showers and will benefit from the above recommendations. ELMER
--- NOTE | 2017-07-22 12:35 | PT PM DAY ---
Diagnosis : ALS PM - Physical Therapy (Home Evaluation) S: Janeth is being discharged home today per her request and as she is medically stable. The patient and her requested a home evaluation in order to determine any specific things that they can modify within the home due to the patient's diagnosis of ALS. Also, they do have a Derick lift that they have purchased but are unsure how to use. Due to the patient's declining functional mobility and complete dependence with transfers, it would be appropriate for the patient's caregiver, which is primarily her , to start using the Derick lift within the house for safety of both the and patient. O: Treatment consisted of a home evaluation performed with occupational therapy in order to determine home modifications and also to instruct caregiver and caregiver's son who was present at the time of the home evaluation on how to properly use the Derick lift that they have purchased. Occupational therapy addressed issues with the bathroom set up to make modifications and physical therapy worked on instructing caregiver () and the couple's son on how to properly use the Derick lift. The patient was very fatigued from getting back from the hospital so she was unable to transfer in order to use the Derick lift so we did utilize another person in order to demonstrate how to roll the patient correctly in order to get the sling underneath the patient in a supine position and how to properly set up the Derick lift and we did make some modifications in the house to move some rugs out of the way in order to make an easier transition from the couple's bedroom to the couch, which is primarily where they are going to be using the Derick lift between as the bathroom set up is too small to use the Derick lift in there. We did work on how to properly set up the Derick, how to properly connect the sling to the Derick, and then how to maneuver the patient within the Derick lift in order to avoid any mishaps and also due to the patient's lack of muscle control due to her advancing ALS, PT did make recommendations on how to properly put the sling on in order to support the patient's neck. We discussed also utilizing a pillow within the sling due to the patient's smaller size to provide her additional support. We worked on Hoyering from the bed and then bringing the patient out to the living room, so maneuvering through the bedroom, dining room, to the living room, and then how to properly position the Derick in order to get the patient sitting back within the couch. A: By the end of the Derick training both the caregiver and the couple's son demonstrated good understanding of how to properly use the Derick and this will be a safer transfer for both the patient and whoever is providing care at the time due to the patient's complete dependency with transfers. Proper modifications were made during the home evaluation in order to provide improved safety with use of the Derick. P: Patient will be discharged from the hospital and will resume outpatient PT one time per week. ELMER
== END 2017-07-21 11:53 | disposition home or self-care (01) | DRG 178 ==
LOC: ER 18:54 → MED/SURG 22:30
PROVIDERS: ADMIT Family Medicine; ATTEND Family Medicine

== ENCOUNTER 2017-10-09 15:31 | Inpatient (IN) ==
[2017-10-09 16:03] LABS: VENOUS PH 7.22 (7.32-7.42)
[2017-10-09 16:04] LABS: BASOPHILS # (AUTO) 0.03 10*3/UL; BASOPHILS % (AUTO) 0.3 % (0-1); EOSINOPHILS # (AUTO) 0.01 10*3/UL; EOSINOPHILS % (AUTO) 0.1 % (0-8); Hematocrit [HCT] 54.1 % (37.0-47.0); Hemoglobin [HGB] 16.5 g/dL (12.0-16.0); LYMPHOCYTES # (AUTO) 0.91 10*3/uL; MEAN CORPUSCULAR HEMOGLOBIN 30.2 PG (27-31); MEAN CORPUSCULAR HGB CONC 30.5 g/dL (33-37); MEAN CORPUSCULAR VOLUME 99.1 FL (81-99); MEAN PLATELET VOLUME 10.8 FL (7.4-12.2); MONOCYTES # (AUTO) 0.26 10*3/UL (0.3-0.8); MONOCYTES % (AUTO) 2.9 % (5-15); NEUTROPHILS # (AUTO) 7.58 10*3/UL; NEUTROPHILS % (AUTO) 86.1 % (50-80); PLATELET MORPHOLOGY COMMENT NORMAL MORPHOLOGY (NORM); RBC MORPHOLOGY COMMENT NORMAL MORPHOLOGY (NORM); RED BLOOD COUNT 5.46 10^6/uL (4.20-5.40); WBC MORPHOLOGY COMMENT NORMAL MORPHOLOGY (NORM)
[2017-10-09 16:06] LABS: BLOOD UREA NITROGEN 11 mg/dL (7-22); SERUM ALBUMIN 3.3 g/dL (3.5-4.8)
--- NOTE | 2017-10-09 16:43 | EKG ---
[address] [place] [address] Measurements Intervals Capac Rate: 129 P: 75 UT: 157 QRS: -24 QRSD: 89 T: 76 QT: 297 QTc: 373 Interpretive Statements SINUS TACHYCARDIA BORDERLINE LEFT AXIS DEVIATION [QRS AXIS < -20] NONSPECIFIC T-WAVE ABNORMALITY ABNORMAL RHYTHM ECG No previous ECG available for comparison Electronically Signed On 10-10-17 08:09:42 MDT by Sylvester Mon MD [email or web address]
[2017-10-09] MEDS ORDERED: Sodium Chloride 0.9% 1,000 ML PRIMARY IV ONE (16:45)
--- NOTE | 2017-10-09 16:59 | DI ---
XR CXR 1VW,10/09/2017 3:39 PM: Clinical History: Hypoxia Previous Exam: July 20, 2017 Findings: A single frontal radiograph of the chest is obtained, and demonstrates interval decrease in the size of a density within the right lung base, but this is now more contracted and curvilinear. Overlying E KG leads are seen. The cardiomediastinum and bony thorax are unremarkable. There is some stable blunting of left costophrenic angle. Impression: 1. Improvement of the right lower lobe density with some stable curvilinear scarring which tears is s lightly more prominent on the prior exam. This could represent resolving pneumonia. 2. Small left pleural effusion essentially unchanged from the prior exam.
--- NOTE | 2017-10-09 17:11 | PDOC ---
HPI - History of Present Illness Date of Service: 10/09/17 Time of Service: 17:30 Chief Complaint: Respiratory arrest History of Present Illness: This is a 67 years old the female with medical history significant for history of ALS she had it for 4 years, she has only very limited movement in her fingers according to the she is unable to walk, she was here in the hospital back in June for aspiration pneumonia, she refused PEG. She has a BiPAP she uses when necessary. Today they were driving back from [place] and the said she said to him that she doesn't feel well and then she was dozing on and off and then as he got closer to [facility] she stopped breathing they brought her to the ER she was cyanotic and had respiratory arrest, they did bag her with oxygen, she did have a pulse , they discovered that she is DO NOT RESUSCITATE and DO NOT INTUBATE so after discussion with the family she was admitted for comfort care. I did speak with the and he agrees with this plan. Past Medical History Medical History: 1. ALS Surgical History: 1. Tubal ligation due to a tubal Pertinent Family History: No family history of ALS. Past Social History: for 50 years. Has 2 healthy children, several grandchildren that are healthy and live in the area of [place], [place]. Lives at home with her . Does not smoke or drink. Tobacco Use: Never Smoker In the Past 12 Months, Have Used or Abuse Any of the Following Substance: None Alcohol Use: None Medication / Allergies Home Medications: Home Medications 3 Medication Instructions Recorded Confirmed Type alprazolam 1 mg tablet 0.5 mg PO QDAY PRN tab 08/06/17 10/09/17 History escitalopram 10 mg tablet 5 mg PO QDAY 08/06/17 10/09/17 History Allergies/Adverse Reactions: Allergies 3 Allergy/AdvReac Type Severity Reaction Status Date / Time No Known Drug Allergies Allergy NOT Verified 10/09/17 21:29 APPLICABLE Review of Systems - Review of Systems ROS Unobtainable: Other Exam - Vitals Vital Signs: Vital Signs Oxygen Flow Rate 15 Oxygen Delivery Method Self-inflating bag - General Additional General Exam Details: Patient laying in bed unresponsive. - Head Head Exam: Normal Inspection - Eye Eye Exam: POSITIVE: Normal Appearance - ENT ENT Exam: POSITIVE: Normal Exam - Neck Neck Exam: Normal Inspection - Respiratory Additional Respiratory Exam Details: Shallow breathing. Otherwise clear - Cardiovascular Cardiovascular Exam: POSITIVE: RRR, Tachycardia - GI/Abdominal GI/Abdominal Exam: POSITIVE: Normal Bowel Sounds, Non Tender, Non Distended, Soft, No Organomegaly - Rectal Rectal Exam: POSITIVE: Deferred - External Exam: POSITIVE: Deferred - Neurological Additional Neurological Exam Details: unresponsive Results - Labs CBC and BMP: 10/09/17 15:45 10/09/17 15:45 Assessment and Plan - Patient Problems (1) Acute respiratory failure Current Visit: Yes Status: Acute Comment: Because of her underlying ALS and she is DO NOT RESUSCITATE, after discussion with the will puts her on morphine drip for comfort and after that we'll take her off the oxygen. Code(s): J96.00 - Acute respiratory failure, unspecified whether with hypoxia or hypercapnia
[2017-10-09] MEDS ORDERED: LIDOCAINE W/ SODIUM BICARB 0.5 ML SYR SUBD PRN (17:37)
[2017-10-09] MEDS ORDERED: ONDANSETRON 4 MG/2 ML VIAL IVP PRN (17:37)
[2017-10-09] MEDS ORDERED: CALCIUM CARBONATE 500 MG (TUMS) CHEWABLE TABLET PO PRN (17:37)
[2017-10-09] MEDS ORDERED: LIDOCAINE HCL 2 % 10 ML JELLY URO-JECT TOPICAL PRN (17:39)
[2017-10-09] MEDS ORDERED: Morphine Syringe 300mg/30ml 300 MG/30 ML PCA.SYRING IV SCH (17:45)
[2017-10-09 21:22] VITALS: TEMP 97.2
--- NOTE | 2017-10-09 22:33 | PDOC ---
General Adult HPI - General Chief Complaint: Code Blue Stated Complaint: UNRESPONSIVE Date Seen by Provider: 10/09/17 Time Seen by Provider: 18:15 Source: POSITIVE: Spouse Exam Limitations: POSITIVE: Clinical condition Nurse's Notes Reviewed & Considered: Yes - History of Present Illness Initial Comment: The patient is a 67-year-old female who is brought into the emergency department from the parking lot unresponsive. She has a history of ALS that was diagnosed 4 years ago. She has had significant worsening over the past several months. She was hospitalized in June with difficulty breathing and aspiration. She had been offered a feeding tube at that time however declined. In addition since that hospitalization she has been very clear that she does not his eye or any further advance treatment and specifically she did not want any intubation or CPR. She had discussed this with Dr. Delvalle in July. Her states that yesterday she had some increased shortness of breath and used her BiPAP machine at home for a period of time. He states that this morning she actually seemed like she was feeling pretty good. They had made a trip to [place]. On their way home he states that she stated that she was not feeling well. She became progressively more confused and less responsive on their way towards [facility]. He subsequently decided to come straight here to the emergency department. Shortly before arriving at the hospital who states that she became completely unresponsive. When she arrived here at the hospital nursing staff was called to evaluate the patient in the car. She did not appear to be breathing and had a weak carotid pulse. She was placed on a gurney and brought into the emergency department and [id number] ventilations were initiated. It was at that time that her relayed information that she was a DO NOT RESUSCITATE and did not desire intubation. By that time the patient did have some weak shallow respirations and was maintaining oxygen saturations on supplemental nasal oxygen. She remained unresponsive with a pulse in the 120s. Have you received a tetanus shot in the past 10 years?: No - Patient Home Medications Home Medications: Home Medications alprazolam 1 mg tablet 0.5 mg PO QDAY PRN tab 08/06/17 escitalopram 10 mg tablet 5 mg PO QDAY 08/06/17 - Patient Allergies Allergies/Adverse Reactions: Allergies 3 Allergy/AdvReac Type Severity Reaction Status Date / Time No Known Drug Allergies Allergy NOT Verified 07/12/18 21:29 APPLICABLE Past Medical History - heen HEENT History: Denies History Cardiovascular History: Denies History Respiratory History: Other (please comment) Additional Respiratory History: Patient has a history of ALS Gastrointestinal History: Denies History Genitourinary History: Denies History Endocrine History: Denies History Musculoskeletal History: Denies History Prosthesis or Implant: No Neurological History: ALS/Rachana Gehrig's Disease Blood Disorders: Denies History Psychiatric History: Denies History History of Sexually Transmitted Diseases: No Female Reproductive History: Denies History Cancer History: Denies History In Past Year Been Physically Harmed or Verbally Threatened: No History of MDRO: No History of Other Communicable Diseases: No Tobacco Use: Never Smoker In the Past 12 Months, Have Used or Abuse Any Substance: None Previous Surgical History: Yes Type / Date of Surgery: right breast biopsy Significant Family History: No pertinent family hx Past Medical History Reviewed: Reviewed - No Changes ROS - Limitations ROS Limitations: Clinical Condition (Further history is unobtainable from the patient) General Adult Exam - General Appearance General Appearance: POSITIVE: Unresponsive - HEENT HEENT: POSITIVE: Ears Inspection Nml, Nose Inspection Nml, Pharynx Inspect. Nml , Dry Mucous Membranes - Respiratory Respiratory: POSITIVE: Other (Decreased breath sounds bilaterally) - Cardiovascular Cardiovascular: POSITIVE: Regular Rate & Rhythm (Sinus tachycardia with a rate in the 120s), No Murmur - Abdomen Abdomen: Soft: (All Quadrants), Normal Bowel Sounds: (All Quadrants), No Guarding: (All Quadrants), No Distention: (All Quadrants) - Skin Skin: POSITIVE: Normal Color, No Rash - Extremities Extremity: Normal Inspection: (All Extremities) - Neurological / Psychological Neurological: POSITIVE: Other (The patient is essentially unresponsive and neurologic evaluation cannot be completed otherwise) General Adult Progress - Results Reviewed by me Xrays/CTs/US Reviewed by me: Yes Discussed with Radiologist: Yes Radiology Findings: Portable chest x-ray shows a small left pleural effusion and resolving right lower lobe density per radiologist. Lab Results Reviewed by Me: Yes Lab Results:: Laboratory Results 3 10/09/17 10/09/17 10/09/17 15:33 15:45 15:45 WBC 8.82 RBC 5.46 H Hgb 16.5 H Hct 54.1 H MCV 99.1 H MCH 30.2 MCHC 30.5 L RDW Std Deviation 56.6 H RDW Coeff of Rhonda 15.6 H Plt Count 240 MPV 10.8 Immature Gran % (Auto) 0.3 Neut % (Auto) 86.1 H Lymph % (Auto) 10.3 Republic % (Auto) 2.9 L Eos % (Auto) 0.1 Baso % (Auto) 0.3 Immature Gran # (Auto) 0.03 Neut # (Auto) 7.58 Lymph # (Auto) 0.91 Republic # (Auto) 0.26 L Eos # (Auto) 0.01 Baso # (Auto) 0.03 WBC Morphology Comment Normal morphology Plt Morphology Comment Normal morphology RBC Morph Comment Normal morphology D-Dimer VBG pH 7.22 L VBG pCO2 75 H VBG HCO3 31 H VBG Base Excess 3 H Sodium 140 Potassium 4.2 Chloride 97 L Carbon Dioxide 29 Anion Gap 14 BUN 11 Creatinine 0.4 L Estimated GFR > 60 BUN/Creatinine Ratio 27.50 H Glucose 314 H Calculated Osmolality 300.0 H Calcium 8.6 L Magnesium 1.9 Total Bilirubin 0.8 AST 34 ALT 34 Alkaline Phosphatase 55 Troponin I C-Reactive Protein 1.8 H Total Protein 5.7 L Albumin 3.3 L Globulin 2.4 L Albumin/Globulin Ratio 1.30 3 10/09/17 10/09/17 15:45 16:00 WBC RBC Hgb Hct MCV MCH MCHC RDW Std Deviation RDW Coeff of Rhonda Plt Count MPV Immature Gran % (Auto) Neut % (Auto) Lymph % (Auto) Republic % (Auto) Eos % (Auto) Baso % (Auto) Immature Gran # (Auto) Neut # (Auto) Lymph # (Auto) Republic # (Auto) Eos # (Auto) Baso # (Auto) WBC Morphology Comment Plt Morphology Comment RBC Morph Comment D-Dimer 1.11 H VBG pH VBG pCO2 VBG HCO3 VBG Base Excess Sodium Potassium Chloride Carbon Dioxide Anion Gap BUN Creatinine Estimated GFR BUN/Creatinine Ratio Glucose Calculated Osmolality Calcium Magnesium Total Bilirubin AST ALT Alkaline Phosphatase Troponin I < 0.012 C-Reactive Protein Total Protein Albumin Globulin Albumin/Globulin Ratio CBC and BMP: 10/09/17 15:45 10/09/17 15:45 EKG Interpretation:: POSITIVE: Normal Intervals, Normal QRS, Normal ST/T, Other (Sinus tachycardia with a rate in the 120s) - Patient's Progress MDM / ED Course: On arrival the patient appeared to be in respiratory arrest. [id number] ventilations were initiated. Discussion with the patient's revealed her history of ALS and current desire to be DNR/DNI. I this time the patient did have weak shallow respirations on her own and she was placed on supplemental oxygen which was maintaining her oxygen saturations in the mid 90s. Initial venous blood gas revealed a pH of 7.22 with a PCO2 of 75. Her EKG showed sinus tachycardia with no acute changes. Chest x-ray actually showed some mild improvement in right lower lobe densities from previous x-ray with continued small left pleural effusion. The patient appears to have respiratory acidosis and respiratory failure related to her ALS. The patient's quality of life has deteriorated significantly recently. It was her wishes not to be intubated or have any cardiopulmonary resuscitation. I subsequently discussed providing comfort care for the patient with her and other family members. They were in agreement with this plan and stated that that was what she wanted. Her oxygen saturations started to drift into the 80s. The family elected to take the pulse oximeter off the patient. I subsequently discussed the patient with Dr. Damico and he agreed to admit the patient for comfort care. - Consult Counseled: POSITIVE: Patient, Family, RE: Lab Results, RE: Radiology Results, RE : DX Patient Care Time - Estimated PCT Patient Care Time (In Minutes): 35 Vital Signs - VS Reviewed Vital Signs Reviewed: Yes Discharge Clinical Impression: Acute respiratory failure, ALS (amyotrophic lateral sclerosis) Discharge Disposition: Admit to Inpatient Condition: Critical Date Decision to Admit to Inpatient: 10/09/17 Time Decision to Admit to Inpatient: 17:00
[2017-10-10 00:20] VITALS: BP 101/62; O2SAT 97
[2017-10-10 04:24] VITALS: RESP 6
--- NOTE | 2017-10-10 10:40 | DCSUMMARY ---
Hospitalization Summary Admit Date: 10/09/2017 Discharge Date: 10/10/17 Hospital Course: diagnosis 1. Acute respiratory failure secondary to ALS 2. ALS Hospital course This is a 67 years old female with medical history significant for history of ALS she had it for about 40 years, she has only very limited movement in her fingers according to the . She is unable to walk. She was here in our hospital back in June for aspiration pneumonia she refused PEG then. He has a BiPAP and she uses that as needed. On the day of admission they were was driving back from [place] and the said that she said to him that she doesn't feel well and then she was dozing on and off and then as he got closer to town she stopped breathing and they brought her here to the ER she was cyanotic and had respiratory arrest, they did bag her with oxygen, she did have a pulse. They discovered that she is DO NOT RESUSCITATE and DO NOT INTUBATE after discussion with the family they elected comfort care. She was admitted for comfort care. Patient was unresponsive when she came into the ER. She was unresponsive when she came into the floor. She did have hypercapnia on her blood gas. After discussion with the family and her they still wanted comfort care. We put her on morphine drip for comfort. She passed the peacefully next day. Laboratory Results 10/09/17 10/09/17 10/09/17 Range/Units 15:33 15:45 15:45 WBC 8.82 (4.8-10.8) 10^3/uL RBC 5.46 H (4.20-5.40) 10^6/uL Hgb 16.5 H (12.0-16.0) g/dL Hct 54.1 H (37.0-47.0) % MCV 99.1 H (81-99) FL MCH 30.2 (27-31) PG MCHC 30.5 L (33-37) g/dL RDW Std Deviation 56.6 H (39-50) fL RDW Coeff of Rhonda 15.6 H (11.5-14.5) % Plt Count 240 (140-350) 10*3/uL MPV 10.8 (7.4-12.2) FL Immature Gran % (Auto) 0.3 (0-5) % Neut % (Auto) 86.1 H (50-80) % Lymph % (Auto) 10.3 (10-50) % Glenn % (Auto) 2.9 L (5-15) % Eos % (Auto) 0.1 (0-8) % Baso % (Auto) 0.3 (0-1) % Immature Gran # (Auto) 0.03 10*3/UL Neut # (Auto) 7.58 10*3/UL Lymph # (Auto) 0.91 10*3/uL Glenn # (Auto) 0.26 L (0.3-0.8) 10*3/UL Eos # (Auto) 0.01 10*3/UL Baso # (Auto) 0.03 10*3/UL WBC Morphology Comment Normal morphology (NORM) Plt Morphology Comment Normal morphology (NORM) RBC Morph Comment Normal morphology (NORM) D-Dimer (0.00-0.59) mg/L VBG pH 7.22 L (7.32-7.42) VBG pCO2 75 H (45-55) mmHg VBG HCO3 31 H (22-26) mmol/L VBG Base Excess 3 H (-2-2) MMOL/L Sodium 140 (135-145) meq/L Potassium 4.2 (3.8-5.2) meq/L Chloride 97 L (98-112) meq/L Carbon Dioxide 29 (23-33) meq/L Anion Gap 14 (5-20) BUN 11 (7-22) mg/dL Creatinine 0.4 L (0.50-1.20) mg/dL Estimated GFR > 60 (>60 ml/min/1.73m(2)) BUN/Creatinine Ratio 27.50 H (6-20) Glucose 314 H (78-110) mg/dL Calculated Osmolality 300.0 H (267-292) mOsm/kg Calcium 8.6 L (8.7-10.7) mg/dL Magnesium 1.9 (1.6-2.4) mg/dL Total Bilirubin 0.8 (0.3-1.2) mg/dL AST 34 (8-39) IU/L ALT 34 (9-52) IU/L Alkaline Phosphatase 55 (38-126) IU/L Troponin I (< 0.040) ng/mL C-Reactive Protein 1.8 H (0.0-0.9) mg/dL Total Protein 5.7 L (6.1-8.0) g/dL Albumin 3.3 L (3.5-4.8) g/dL Globulin 2.4 L (2.50-4.10) g/dL Albumin/Globulin Ratio 1.30 (1.3-2.0) mg/g 10/09/17 10/09/17 Range/Units 15:45 16:00 WBC (4.8-10.8) 10^3/uL RBC (4.20-5.40) 10^6/uL Hgb (12.0-16.0) g/dL Hct (37.0-47.0) % MCV (81-99) FL MCH (27-31) PG MCHC (33-37) g/dL RDW Std Deviation (39-50) fL RDW Coeff of Rhonda (11.5-14.5) % Plt Count (140-350) 10*3/uL MPV (7.4-12.2) FL Immature Gran % (Auto) (0-5) % Neut % (Auto) (50-80) % Lymph % (Auto) (10-50) % Glenn % (Auto) (5-15) % Eos % (Auto) (0-8) % Baso % (Auto) (0-1) % Immature Gran # (Auto) 10*3/UL Neut # (Auto) 10*3/UL Lymph # (Auto) 10*3/uL Glenn # (Auto) (0.3-0.8) 10*3/UL Eos # (Auto) 10*3/UL Baso # (Auto) 10*3/UL WBC Morphology Comment (NORM) Plt Morphology Comment (NORM) RBC Morph Comment (NORM) D-Dimer 1.11 H (0.00-0.59) mg/L VBG pH (7.32-7.42) VBG pCO2 (45-55) mmHg VBG HCO3 (22-26) mmol/L VBG Base Excess (-2-2) MMOL/L Sodium (135-145) meq/L Potassium (3.8-5.2) meq/L Chloride (98-112) meq/L Carbon Dioxide (23-33) meq/L Anion Gap (5-20) BUN (7-22) mg/dL Creatinine (0.50-1.20) mg/dL Estimated GFR (>60 ml/min/1.73m(2)) BUN/Creatinine Ratio (6-20) Glucose (78-110) mg/dL Calculated Osmolality (267-292) mOsm/kg Calcium (8.7-10.7) mg/dL Magnesium (1.6-2.4) mg/dL Total Bilirubin (0.3-1.2) mg/dL AST (8-39) IU/L ALT (9-52) IU/L Alkaline Phosphatase (38-126) IU/L Troponin I < 0.012 (< 0.040) ng/mL C-Reactive Protein (0.0-0.9) mg/dL Total Protein (6.1-8.0) g/dL Albumin (3.5-4.8) g/dL Globulin (2.50-4.10) g/dL Albumin/Globulin Ratio (1.3-2.0) mg/g Exam - Vitals Vital Signs: Vital Signs Temperature 97.2 F Temperature Source Temporal Artery Scan Pulse Rate [Pulse Oximeter] 100 Respiratory Rate 6 Blood Pressure [Left Arm] 101/62 Pulse Ox 97 Oxygen Flow Rate 1 Oxygen Delivery Method Nasal Cannula Height 5 ft 2 in Weight 115 lb Patient Problems - Patient Problem List (1) Acute respiratory failure Status: Acute Code(s): J96.00 - Acute respiratory failure, unspecified whether with hypoxia or hypercapnia Category: Medical
== END 2017-10-10 08:25 | disposition expired | DRG 189 ==
LOC: ER 15:31 → MED/SURG 17:05
PROVIDERS: ADMIT Internal Medicine; ATTEND Internal Medicine